=== PATIENT | female | born 1960 | race Caucasian/White ===

== ENCOUNTER 2020-01-25 04:36 | Emergency (ER) | payer MEDICAID, MEDICARE ==
[~2020-01-25] VITALS: Ht 154.9 cm; Wt 60.9 kg
--- NOTE | 2020-01-25 04:48 | NUR ---
pt up to rr with steady gait
--- NOTE | 2020-01-25 04:53 | NUR ---
urine sample taken to lab. pa at pt's bedside for eval
[2020-01-25] MEDS ORDERED: SODIUM CHLORIDE FLUSH 10ML SYR IVF ONE (05:00)
[2020-01-25] MEDS ORDERED: KETOROLAC 30 MG/1 ML ONE (05:00)
[2020-01-25] MEDS ORDERED: KETOROLAC 30 MG/1 ML IVPush ONE (05:00)
--- NOTE | 2020-01-25 05:12 | NUR ---
iv site started, labs drawn, pt medicated per mar
[2020-01-25 05:14] LABS: MICROSCOPIC INDICATED
[2020-01-25] MEDS ORDERED: BECL10.62 INH (05:14)
[2020-01-25 05:20] LABS: BASOPHILS # (AUTO) 0.06 x10^3/uL (0-0.1); BASOPHILS % (AUTO) 1 % (0-1); EOSINOPHILS # (AUTO) 0.45 x10^3/uL (0-0.4); EOSINOPHILS % (AUTO) 6 % (1-7); LYMPHOCYTES # (AUTO) 2.17 x10^3/uL (1-3.4); LYMPHOCYTES % (AUTO) 29 % (22-44); MD NO; MEAN CORPUSCULAR HEMOGLOBIN 27.1 pg (27.0-34.8); MEAN CORPUSCULAR HGB CONC 32.7 g/dL (32.4-35.8); MEAN CORPUSCULAR VOLUME 82.8 fL (80-100); MEAN PLATELET VOLUME 7.8 fL (7.4-10.4); MONOCYTES # (AUTO) 0.46 x10^3/uL (0.2-0.8); MONOCYTES % (AUTO) 6 % (2-9); NEUTROPHILS # (AUTO) 4.34 x10^3/uL (1.8-6.8); NEUTROPHILS % (AUTO) 58 % (42-75); PLATELET COUNT 277 x10^3/uL (130-400); RED BLOOD COUNT 4.92 x10^6/uL (3.82-5.3); RED CELL DISTRIBUTION WIDTH 14.8 % (9.6-15.2)
[2020-01-25 05:29] LABS: ANION GAP 5 mmol/L (5-15); CALCIUM 8.6 mg/dL (8.5-10.1); CHLORIDE 110 mmol/L (98-107)
[2020-01-25 05:32] LABS: ALANINE AMINOTRANSFERASE 27 U/L (12-78); ALKALINE PHOSPHATASE 64 U/L (45-117); BILIRUBIN,TOTAL 0.8 mg/dL (0.2-1.0); CREATININE 0.92 mg/dL (0.55-1.02); TOTAL PROTEIN 7.5 g/dL (6.4-8.2)
--- NOTE | 2020-01-25 05:51 | NUR ---
straight cath completed, urine sample taken to lab
[2020-01-25 06:14] VITALS: BP 139/78
[2020-01-25 06:17] LABS: MICROSCOPIC INDICATED
== END 2020-01-25 06:50 | disposition home or self-care (01) ==
LOC: ED 05:00
DX: N20.1 Calculus of ureter (principal); R31.9 Hematuria, unspecified
CPT/HCPCS: 36415; 76770; 80053; 81001; 85025; 87086; 96374; 99284; J1885

== ENCOUNTER 2021-01-11 09:10 | Emergency (ER) | payer BC, MEDICARE ==
[~2021-01-11] VITALS: Ht 154.9 cm; Wt 59.9 kg
[~2021-01-11 09:10] MED LIST: BECL10.62 INH
--- NOTE | 2021-01-11 09:38 | NUR ---
PT CAME IN CO RLQ ABD PAIN THAT RADIATES TO HER BACK. PT REPORTS HX OF KIDNEY STONES AND SAYS "THIS FEELS SIMILAR". PT PROVIDED UA - SENT TO LAB. RESTING IN [facility]. CONNECTED TO MONITORING EQUIPMENT. BLANKET PROVIDED
[2021-01-11] MEDS ORDERED: KETOROLAC 30 MG/1 ML ONE (09:53)
[2021-01-11] MEDS ORDERED: ONDANSETRON 2MG/ML, 2ML ONE (09:54)
[2021-01-11 09:55] LABS: BASOPHILS % (AUTO) 0 % (0-1); EOSINOPHILS % (AUTO) 1 % (1-7); LYMPHOCYTES % (AUTO) 11 % (22-44); MEAN CORPUSCULAR HEMOGLOBIN 27.2 pg (27.0-34.8); MEAN PLATELET VOLUME 7.4 fL (7.4-10.4); MONOCYTES % (AUTO) 4 % (2-9); NEUTROPHILS % (AUTO) 84 % (42-75); PLATELET COUNT 266 x10^3/uL (130-400); RED BLOOD COUNT 4.94 x10^6/uL (3.82-5.3); RED CELL DISTRIBUTION WIDTH 14.2 % (9.6-15.2)
[2021-01-11] MEDS ORDERED: KETOROLAC 30 MG/1 ML IVPush ONE (10:00)
[2021-01-11] MEDS ORDERED: ALBUTEROL/IPRATROPIUM 2.5MG/0.5MG, 3 ML NPPB SCH (10:00)
[2021-01-11] MEDS ORDERED: ONDANSETRON 2MG/ML, 2ML IVPush ONE (10:00)
[2021-01-11 10:03] LABS: MICROSCOPIC INDICATED
[2021-01-11 10:05] LABS: ALBUMIN 4.2 g/dL (3.4-5.0); ANION GAP 6 mmol/L (5-15); CALCIUM 9.1 mg/dL (8.5-10.1); CHLORIDE 104 mmol/L (98-107); MD NO
--- NOTE | 2021-01-11 10:07 | NUR ---
PIV PLACED, PT MEDICATED PER ORDER, TOLERATED WELL. VSS, NADN. CALL LIGHT IN REACH.
--- NOTE | 2021-01-11 10:19 | NUR ---
PT TO CT
--- NOTE | 2021-01-11 10:24 | NUR ---
PT BACK FROM CT
[2021-01-11 10:42] VITALS: BP 130/68
--- NOTE | 2021-01-11 10:43 | NUR ---
UPON PAIN REASSESSMENT, PT STATES PAIN HAS DECREASED. PT A&O, RESPS EVEN AND UNLABORED, NADN, VSS. CALL LIGHT IN REACH.
--- NOTE | 2021-01-11 10:59 | NUR ---
YSABEL RED AT BEDSIDE FOR EVAL
--- NOTE | 2021-01-11 11:36 | NUR ---
PT EDUCATED ON DISCHARGE INSTRUCTIONS, PRESCRIPTION, AND FOLLOW-UP, VERBALIZED UNDERSTANDING. AMBULATORY TO DISCHARGE WITH STEADY GAIT.
== END 2021-01-11 11:39 | disposition home or self-care (01) ==
LOC: ED 11:00
DX: J44.1 Chronic obstructive pulmonary disease with (acute) exacerbation (principal); N20.1 Calculus of ureter; R10.9 Unspecified abdominal pain
CPT/HCPCS: 36415; 74176; 80048; 81001; 82040; 85025; 87086; 96374; 96375; 99284; J1885; J2405; J7512

== ENCOUNTER 2021-03-30 07:23 | Inpatient (IN) | payer MEDICARE ==
[~2021-03-30] VITALS: Ht 154.9 cm; Wt 59.2 kg
--- NOTE | 2021-03-30 07:32 | NUR ---
cytogeneticist: EKG done in triage
[2021-03-30] MEDS ORDERED: ALBUTEROL/IPRATROPIUM 2.5MG/0.5MG, 3 ML NPPB PRN ×2 (08:00→09:30)
[2021-03-30] MEDS ORDERED: SODIUM CHLORIDE FLUSH 10ML SYR IVF ONE (08:00)
[2021-03-30] MEDS ORDERED: methylPREDNISolone SOD SUCC 125 MG/2 ML ONE (08:00)
[2021-03-30] MEDS ORDERED: methylPREDNISolone SOD SUCC 125 MG/2 ML IV ONE (08:00)
[2021-03-30] MEDS ORDERED: ALBUTEROL/IPRATROPIUM 2.5MG/0.5MG, 3 ML ONE ×3 (08:01→18:16)
--- NOTE | 2021-03-30 08:07 | NUR ---
LS diminished with decrease aeration and exp wheezes throughout, HHN started. PCXR done, labs drawn with PIV and x1 set bc. Steroids per emar, on monitor ST no ectopy, RR 30, o2 sats steady at 94% on 3L. Pt with difficulty speaking full sentences. Pt also reports body aches and loss taste/smell, is covid vaccinated pfeizer x2. Covid swab by ERP. AIDET provided, will continue to monitor.
--- NOTE | 2021-03-30 08:19 | NUR ---
Lab here drawing 2nd set bc and lactate. Pt reports feeling a little better post HHN, ls with slight increase aeration, sats now 99% on 3L.
[2021-03-30 08:35] LABS: BASOPHILS % (AUTO) 1 % (0-1); EOSINOPHILS % (AUTO) 0 % (1-7); LYMPHOCYTES % (AUTO) 8 % (22-44); MEAN CORPUSCULAR HEMOGLOBIN 26.6 pg (27.0-34.8); MEAN CORPUSCULAR HGB CONC 32.6 g/dL (32.4-35.8); MEAN PLATELET VOLUME 7.8 fL (7.4-10.4); MONOCYTES % (AUTO) 3 % (2-9); NEUTROPHILS % (AUTO) 88 % (42-75); PLATELET COUNT 525 x10^3/uL (130-400); RED BLOOD COUNT 6.01 x10^6/uL (3.82-5.3); RED CELL DISTRIBUTION WIDTH 13.6 % (9.6-15.2)
[2021-03-30 08:40] LABS: ALANINE AMINOTRANSFERASE 25 U/L (12-78); ALBUMIN 3.8 g/dL (3.4-5.0); ANION GAP 7 mmol/L (5-15); CALCIUM 9.9 mg/dL (8.5-10.1); CHLORIDE 107 mmol/L (98-107); CREATININE 0.82 mg/dL (0.55-1.02)
[2021-03-30 08:44] LABS: ALKALINE PHOSPHATASE 111 U/L (45-117); BILIRUBIN,TOTAL 0.6 mg/dL (0.2-1.0); TOTAL PROTEIN 8.7 g/dL (6.4-8.2)
[2021-03-30] MEDS ORDERED: ASPIRIN 81 MG TABLET CHEW ONE (08:47)
[2021-03-30] MEDS ORDERED: ASPIRIN 81 MG TABLET CHEW PO ONE (09:00)
--- NOTE | 2021-03-30 09:55 | NUR ---
#2 HHN started for increase in SOB, low sats. IV to Right arm no s/s infiltration. Will go to CTA after RT tx finished.
--- NOTE | 2021-03-30 10:03 | NUR ---
Post HHN #2, increase aeration sats up to 99%, says feels better. Call to CTA to take pt. Pt agrees with POC.
--- NOTE | 2021-03-30 10:06 | NUR ---
No IVF orders from [facility] at this time.
--- NOTE | 2021-03-30 10:15 | NUR ---
Pt to CTA in [facility] on o2 with tech.
--- NOTE | 2021-03-30 10:35 | NUR ---
Pt back from CTA unable to complete due to inadequate IV status, pt returned to ER.
--- NOTE | 2021-03-30 11:30 | NUR ---
IV to Left AC by ANAMIKA severino. IV patent, notified CT of status.
--- NOTE | 2021-03-30 12:42 | NUR ---
CT DELAY; ONE ROOM DOING BIOPSY-PT IS ISOLATION R/O COVID AND MUST WAIT UNTIL BX DONE
--- NOTE | 2021-03-30 13:05 | NUR ---
task RN: assumed care of pt on behalf of primary RN for lunch break only. Dr. Steele at bedside for eval
--- NOTE | 2021-03-30 13:15 | NUR ---
task RN: pt in RAD
[2021-03-30] MEDS ORDERED: ACETAMINOPHEN 325 MG TABLET PO PRN (13:30)
[2021-03-30] MEDS ORDERED: POLYETHYLENE GLYCOL 17 GM PACKET PO PRN (13:30)
[2021-03-30] MEDS ORDERED: GUAIFENESIN/COD200MG-20MG/10ML LIQUID PO PRN (13:30)
--- NOTE | 2021-03-30 14:09 | NUR ---
Pt covid test negative, removed from iso in ER. Pt up to bsc with o2 on. Waiting for tele bed.
[2021-03-30] MEDS ORDERED: METOPROLOL TARTRATE 25 MG TAB ONE (14:19)
[2021-03-30] MEDS ORDERED: DEXAMETHASONE 4 MG/ML, 1ML ONE (14:19)
[2021-03-30] MEDS ORDERED: ENOXAPARIN 40 MG/0.4 ML ONE (14:19)
[2021-03-30] MEDS ORDERED: OMNIPAQUE 350 MG/ML, 100ML BOTTLE ONE (14:21)
[2021-03-30] MEDS ORDERED: KETOROLAC 30 MG/1 ML IV PRN (14:30)
[2021-03-30] MEDS: DEXAMETHASONE 4 MG/ML, 1ML IVPush SCH ×2 (14:46→21:49)
[2021-03-30] MEDS: METOPROLOL TARTRATE 25 MG TAB PO SCH ×2 (14:47→18:00)
[2021-03-30] MEDS: ENOXAPARIN 40 MG/0.4 ML SQ SCH (14:47)
--- NOTE | 2021-03-30 14:51 | NUR ---
medicated per order. spoke with hospitalist; pt being tx for PNA.
[2021-03-30] MEDS ORDERED: LACTATED RINGERS 1,000 ML IVBOLUS ONE (15:00)
[2021-03-30 16:06] VITALS: BP 145/98
[2021-03-30] MEDS ORDERED: LACTATED RINGERS 1,000 ML IV SCH (16:30)
[2021-03-30] MEDS ORDERED: PROPOFOL 10 MG/ML, 100ML IV ONE (17:04)
[2021-03-30] MEDS ORDERED: ETOMIDATE 20 MG/10 ML ONE (17:04)
[2021-03-30 17:07] VITALS: BP 146/98
[2021-03-30 18:46] LABS: BASOPHILS % (AUTO) 0 % (0-1); EOSINOPHILS % (AUTO) 0 % (1-7); LYMPHOCYTES % (AUTO) 4 % (22-44); MEAN CORPUSCULAR HGB CONC 31.6 g/dL (32.4-35.8); MEAN PLATELET VOLUME 7.5 fL (7.4-10.4); MONOCYTES % (AUTO) 1 % (2-9); NEUTROPHILS % (AUTO) 95 % (42-75); PLATELET COUNT 493 x10^3/uL (130-400); RED BLOOD COUNT 4.83 x10^6/uL (3.82-5.3); RED CELL DISTRIBUTION WIDTH 13.3 % (9.6-15.2)
[2021-03-30 18:54] LABS: ALANINE AMINOTRANSFERASE 29 U/L (12-78); ALBUMIN 2.7 g/dL (3.4-5.0); ANION GAP 5 mmol/L (5-15); CALCIUM 8.8 mg/dL (8.5-10.1); CHLORIDE 112 mmol/L (98-107); CREATININE 0.99 mg/dL (0.55-1.02)
[2021-03-30 18:55] LABS: D-DIMER 1.65 ug/mlFEU (0.00-0.52); INTERNATIONAL NORMALIZED RATIO 1.38 (0.93-1.1); PROTHROMBIN TIME 14.5 Seconds (9.6-11.5)
[2021-03-30 18:59] LABS: ALKALINE PHOSPHATASE 82 U/L (45-117); BILIRUBIN,TOTAL 0.3 mg/dL (0.2-1.0); TOTAL PROTEIN 6.7 g/dL (6.4-8.2)
[2021-03-30] MEDS ORDERED: NOREPINEPHRINE 1 MG/ML, 4ML ONE (19:21)
[2021-03-30] MEDS ORDERED: LACTATED RINGERS 1,000 ML IVBOLUS PRN (19:30)
[2021-03-30] MEDS ORDERED: NOREPINEPHRINE 8 MG in SODIUM CHLORIDE 0.9% 242 ML IV SCH (19:31)
[2021-03-30] MEDS ORDERED: TRAZODONE 50MG TABLET PO PRN (21:00)
[2021-03-30] MEDS ORDERED: MELATONIN 5 MG TABLET PO PRN (21:00)
[2021-03-30] MEDS: GUAIFENESIN ER 600 MG TABLET PO SCH (21:36)
[2021-03-30] MEDS: DOXYCYCLINE 50 MG/5 ML ORAL SUSP PO SCH (21:49)
[2021-03-30] MEDS: CEFTRIAXONE 2 GM in DEXTROSE 5% 50 ML IVPB SCH (21:49)
[2021-03-30] MEDS ORDERED: PROPOFOL 100 ML IV ONE (23:21)
[2021-03-30] MEDS ORDERED: GLUCAGON 1 MG IM PRN (23:30)
[2021-03-30] MEDS ORDERED: LACTULOSE 20 GM/30 ML UDC NG PRN (23:30)
[2021-03-30] MEDS ORDERED: PHARMACY MAY ADJ FOR RENAL FX MC SCH (23:30)
[2021-03-30] MEDS ORDERED: LIDOCAINE-MPF 1%, 2ML ENDO PRN (23:30)
[2021-03-31] MEDS ORDERED: OMNIPAQUE 350 MG/ML, 75ML BOTTLE ONE (01:30)
[2021-03-31] MEDS: PROPOFOL 100 ML IV PRN ×2 (01:50→05:27)
[2021-03-31] MEDS: DEXAMETHASONE 4 MG/ML, 1ML IVPush SCH (03:36)
[2021-03-31 04:32] LABS: BASOPHILS % (AUTO) 0 % (0-1); EOSINOPHILS % (AUTO) 0 % (1-7); LYMPHOCYTES % (AUTO) 9 % (22-44); MEAN CORPUSCULAR HEMOGLOBIN 26.6 pg (27.0-34.8); MEAN CORPUSCULAR HGB CONC 32.9 g/dL (32.4-35.8); MEAN PLATELET VOLUME 7.7 fL (7.4-10.4); MONOCYTES % (AUTO) 5 % (2-9); NEUTROPHILS % (AUTO) 86 % (42-75); PLATELET COUNT 409 x10^3/uL (130-400); RED BLOOD COUNT 4.67 x10^6/uL (3.82-5.3); RED CELL DISTRIBUTION WIDTH 13.4 % (9.6-15.2)
[2021-03-31 04:43] LABS: ALANINE AMINOTRANSFERASE 36 U/L (12-78); ALBUMIN 2.8 g/dL (3.4-5.0); ANION GAP 11 mmol/L (5-15); CALCIUM 8.6 mg/dL (8.5-10.1); CHLORIDE 116 mmol/L (98-107); CREATININE 0.84 mg/dL (0.55-1.02)
[2021-03-31 04:46] LABS: ALKALINE PHOSPHATASE 76 U/L (45-117); BILIRUBIN,TOTAL 0.4 mg/dL (0.2-1.0); TOTAL PROTEIN 6.2 g/dL (6.4-8.2)
[2021-03-31] MEDS: METOPROLOL TARTRATE 25 MG TAB PO SCH (05:27)
[2021-03-31] MEDS: methylPREDNISolone SOD SUCC 125 MG/2 ML IVPush SCH ×3 (06:27→18:30)
[2021-03-31] MEDS ORDERED: ALBUTEROL/IPRATROPIUM 2.5MG/0.5MG, 3 ML ONE ×2 (07:33→14:42)
[2021-03-31] MEDS: SODIUM CHLORIDE FLUSH 10ML SYR IVF SCH ×2 (09:00→19:47)
[2021-03-31] MEDS: SENNA/DOCUSATE TABLET PO SCH (10:11)
[2021-03-31] MEDS: DOXYCYCLINE 50 MG/5 ML ORAL SUSP PO SCH ×2 (10:12→20:45)
[2021-03-31] MEDS: GUAIFENESIN ER 600 MG TABLET PO SCH ×2 (10:12→20:45)
[2021-03-31] MEDS: ENOXAPARIN 40 MG/0.4 ML SQ SCH (13:53)
[2021-03-31] MEDS ORDERED: LACTATED RINGERS 1,000 ML IV SCH (16:30)
[2021-03-31] MEDS: CEFTRIAXONE 2 GM in DEXTROSE 5% 50 ML IVPB SCH (19:46)
[2021-04-01] MEDS: methylPREDNISolone SOD SUCC 125 MG/2 ML IVPush SCH ×4 (00:31→17:37)
[2021-04-01 05:05] LABS: MEAN CORPUSCULAR HEMOGLOBIN 26.1 pg (27.0-34.8); MEAN CORPUSCULAR HGB CONC 32.5 g/dL (32.4-35.8); MEAN PLATELET VOLUME 7.7 fL (7.4-10.4); PLATELET COUNT 350 x10^3/uL (130-400); RED BLOOD COUNT 4.54 x10^6/uL (3.82-5.3); RED CELL DISTRIBUTION WIDTH 13.2 % (9.6-15.2)
[2021-04-01 05:18] LABS: CHLORIDE 111 mmol/L (98-107)
[2021-04-01 05:25] LABS: ANION GAP 6 mmol/L (5-15); CALCIUM 8.9 mg/dL (8.5-10.1); CREATININE 0.59 mg/dL (0.55-1.02)
[2021-04-01 05:33] LABS: CLOSTRIDIUM DIFFICILE ANTIGEN NEGATIVE; CLOSTRIDIUM DIFFICILE TOXIN NEGATIVE (Negative)
[2021-04-01 05:39] LABS: BAND#(MANUAL) 0.25 x10^3/uL; BANDS%(MANUAL) 1 % (0-7); LYMPH#(MANUAL) 0.49 x10^3/uL (1-3.4); LYMPHS% (MANUAL) 2 % (22-44); MONOS#(MANUAL) 0.25 x10^3/uL (0.3-2.7); MONOS% (MANUAL) 1 % (2-9); SEG#(MANUAL) 23.62 x10^3/uL (1.8-6.8); SEGS% (MANUAL) 96 % (42-75)
[2021-04-01 05:40] LABS: <PLATELET ESTIMATE> ADEQUATE; <PLT MORPHOLOGY> NORMAL PLT MORPH; <RBC MORPHOLOGY> NORMAL
[2021-04-01] MEDS: GUAIFENESIN ER 600 MG TABLET PO SCH ×2 (08:30→21:29)
[2021-04-01] MEDS: SENNA/DOCUSATE TABLET PO SCH (08:30)
[2021-04-01] MEDS: POTASSIUM CHLORIDE 20 MEQ TAB.ER.PRT PO SCH ×2 (08:30→17:37)
[2021-04-01] MEDS: SODIUM CHLORIDE FLUSH 10ML SYR IVF SCH ×2 (08:31→21:30)
[2021-04-01] MEDS: DOXYCYCLINE 100MG TABLET PO SCH ×2 (08:33→21:30)
[2021-04-01] MEDS ORDERED: ALBUTEROL/IPRATROPIUM 2.5MG/0.5MG, 3 ML ONE (09:16)
[2021-04-01] MEDS ORDERED: ALBUTEROL/IPRATROPIUM 2.5MG/0.5MG, 3 ML NPPB PRN (09:30)
[2021-04-01 11:41] VITALS: BP 100/68
[2021-04-01 12:00] VITALS: BP 100/68
[2021-04-01] MEDS: ENOXAPARIN 40 MG/0.4 ML SQ SCH (17:37)
[2021-04-01 21:04] VITALS: BP 127/89
[2021-04-01] MEDS: CEFTRIAXONE 2 GM in DEXTROSE 5% 50 ML IVPB SCH (21:29)
[2021-04-02] MEDS: methylPREDNISolone SOD SUCC 125 MG/2 ML IVPush SCH ×4 (00:37→18:28)
[2021-04-02 03:00] VITALS: BP 120/79
[2021-04-02 06:09] LABS: BASOPHILS % (AUTO) 0 % (0-1); EOSINOPHILS % (AUTO) 0 % (1-7); LYMPHOCYTES % (AUTO) 2 % (22-44); MEAN CORPUSCULAR HEMOGLOBIN 26.3 pg (27.0-34.8); MEAN CORPUSCULAR HGB CONC 32.6 g/dL (32.4-35.8); MEAN PLATELET VOLUME 7.4 fL (7.4-10.4); MONOCYTES % (AUTO) 2 % (2-9); NEUTROPHILS % (AUTO) 96 % (42-75); PLATELET COUNT 303 x10^3/uL (130-400); RED BLOOD COUNT 4.35 x10^6/uL (3.82-5.3); RED CELL DISTRIBUTION WIDTH 13.7 % (9.6-15.2)
[2021-04-02 06:19] LABS: INTERNATIONAL NORMALIZED RATIO 1.06 (0.93-1.1); PROTHROMBIN TIME 11.3 Seconds (9.6-11.5)
[2021-04-02 06:22] LABS: ALBUMIN 2.7 g/dL (3.4-5.0); ANION GAP 3 mmol/L (5-15); CALCIUM 8.5 mg/dL (8.5-10.1); CHLORIDE 112 mmol/L (98-107)
[2021-04-02 06:27] LABS: ALANINE AMINOTRANSFERASE 50 U/L (12-78); ALKALINE PHOSPHATASE 66 U/L (45-117); BILIRUBIN,TOTAL 0.3 mg/dL (0.2-1.0); CREATININE 0.67 mg/dL (0.55-1.02); TOTAL PROTEIN 6.3 g/dL (6.4-8.2); TRIGLYCERIDES 106 mg/dL (50-200)
[2021-04-02 07:56] VITALS: BP 128/87
[2021-04-02] MEDS: GUAIFENESIN ER 600 MG TABLET PO SCH ×2 (08:12→20:25)
[2021-04-02] MEDS: DOXYCYCLINE 100MG TABLET PO SCH ×2 (08:12→20:25)
[2021-04-02] MEDS: SODIUM CHLORIDE FLUSH 10ML SYR IVF SCH ×2 (08:14→20:25)
[2021-04-02] MEDS: ENOXAPARIN 40 MG/0.4 ML SQ SCH (13:23)
[2021-04-02] MEDS: ONDANSETRON 2MG/ML, 2ML IVPush PRN (13:29)
[2021-04-02 13:54] VITALS: BP 138/98
[2021-04-02 13:56] VITALS: BP 126/66
[2021-04-02 18:27] VITALS: BP 137/85
[2021-04-02] MEDS: CARVEDILOL 3.125 MG TABLET PO SCH (18:29)
[2021-04-02 19:04] VITALS: BP 119/81
[2021-04-02] MEDS: CEFTRIAXONE 2 GM in DEXTROSE 5% 50 ML IVPB SCH (20:25)
[2021-04-03] MEDS: methylPREDNISolone SOD SUCC 125 MG/2 ML IVPush SCH ×3 (00:50→13:24)
[2021-04-03 01:21] VITALS: BP 101/64
[2021-04-03 06:03] VITALS: BP 130/76
[2021-04-03] MEDS: CARVEDILOL 3.125 MG TABLET PO SCH (06:08)
[2021-04-03 06:30] LABS: BASOPHILS % (AUTO) 0 % (0-1); EOSINOPHILS % (AUTO) 0 % (1-7); LYMPHOCYTES % (AUTO) 3 % (22-44); MEAN CORPUSCULAR HEMOGLOBIN 26.3 pg (27.0-34.8); MEAN CORPUSCULAR HGB CONC 32.5 g/dL (32.4-35.8); MEAN PLATELET VOLUME 7.7 fL (7.4-10.4); MONOCYTES % (AUTO) 3 % (2-9); NEUTROPHILS % (AUTO) 94 % (42-75); PLATELET COUNT 304 x10^3/uL (130-400); RED BLOOD COUNT 4.09 x10^6/uL (3.82-5.3); RED CELL DISTRIBUTION WIDTH 13.3 % (9.6-15.2)
[2021-04-03 06:33] LABS: ALANINE AMINOTRANSFERASE 92 U/L (12-78); ALBUMIN 2.7 g/dL (3.4-5.0); ANION GAP 5 mmol/L (5-15); CALCIUM 8.5 mg/dL (8.5-10.1); CHLORIDE 109 mmol/L (98-107); CREATININE 0.56 mg/dL (0.55-1.02)
[2021-04-03 06:37] LABS: ALKALINE PHOSPHATASE 66 U/L (45-117); BILIRUBIN,TOTAL 0.4 mg/dL (0.2-1.0)
[2021-04-03] MEDS: DOXYCYCLINE 100MG TABLET PO SCH (07:59)
[2021-04-03] MEDS: GUAIFENESIN ER 600 MG TABLET PO SCH (07:59)
[2021-04-03 08:00] VITALS: BP 120/81
[2021-04-03] MEDS ORDERED: LISINOPRIL 5 MG TABLET PO SCH (09:00)
[2021-04-03] MEDS ORDERED: PRED20TA PO (10:40)
[2021-04-03] MEDS ORDERED: DOXY100T PO (10:40)
[2021-04-03] MEDS ORDERED: LISI5TAB7 PO (10:40)
[2021-04-03] MEDS ORDERED: AMOX1TAB61 PO (10:40)
[2021-04-03] MEDS ORDERED: CARV3.1212 PO (10:40)
[2021-04-03 12:21] VITALS: BP 116/77
[2021-04-03] MEDS: ENOXAPARIN 40 MG/0.4 ML SQ SCH (13:25)
[2021-04-03] MEDS: SODIUM CHLORIDE FLUSH 10ML SYR IVF SCH (13:25)
[2021-04-03] MEDS: ONDANSETRON 2MG/ML, 2ML IVPush PRN (13:41)
== END 2021-04-03 17:54 | disposition home health service (06) | DRG 871 ==
LOC: ED 07:40 → SUATTDRO 12:43 → EDIP 13:13 → 4EST 15:58 → CCU 17:50 → 4WST 04-01 10:59
PROVIDERS: ADMIT Internal Medicine; ATTEND Family Medicine
PROC: 5A1935Z Respiratory Ventilation, Less than 24 Consecutive Hours (ICD-10-PCS; principal; 2021-03-30)
PROC: 0BH17EZ Insertion of Endotracheal Airway into Trachea, Via Natural or Artificial Opening (ICD-10-PCS; 2021-03-30)
PROC: 02HV33Z Insertion of Infusion Device into Superior Vena Cava, Percutaneous Approach (ICD-10-PCS; 2021-03-30)
PROC: B548ZZA Ultrasonography of Superior Vena Cava, Guidance (ICD-10-PCS; 2021-03-30)
PROC: 04HY32Z Insertion of Monitoring Device into Lower Artery, Percutaneous Approach (ICD-10-PCS; 2021-03-30)
PROC: 4A133B1 Monitoring of Arterial Pressure, Peripheral, Percutaneous Approach (ICD-10-PCS; 2021-03-30)
PROC: 4A133J1 Monitoring of Arterial Pulse, Peripheral, Percutaneous Approach (ICD-10-PCS; 2021-03-30)
DX: A41.9 Sepsis, unspecified organism (principal); I21.4 Non-ST elevation (NSTEMI) myocardial infarction; G93.41 Metabolic encephalopathy; J18.9 Pneumonia, unspecified organism; J96.01 Acute respiratory failure with hypoxia; R65.21 Severe sepsis with septic shock; I50.23 Acute on chronic systolic (congestive) heart failure; J44.1 Chronic obstructive pulmonary disease with (acute) exacerbation; J98.11 Atelectasis; D68.9 Coagulation defect, unspecified; E87.2 Acidosis; J44.0 Chronic obstructive pulmonary disease with (acute) lower respiratory infection; Z99.11 Dependence on respirator [ventilator] status; Z66 Do not resuscitate; D86.0 Sarcoidosis of lung; Z20.822 Contact with and (suspected) exposure to COVID-19; E88.09 Other disorders of plasma-protein metabolism, not elsewhere classified; J84.10 Pulmonary fibrosis, unspecified; E87.6 Hypokalemia; K40.90 Unilateral inguinal hernia, without obstruction or gangrene, not specified as recurrent; T38.0X5A Adverse effect of glucocorticoids and synthetic analogues, initial encounter; I25.2 Old myocardial infarction; Y92.89 Other specified places as the place of occurrence of the external cause; I11.0 Hypertensive heart disease with heart failure
CPT/HCPCS: 36415; 36600; 70450; 71045; 71275; 80048; 80053; 82330; 82803; 82962; 83605; 83735; 83880; 84100; 84145; 84478; 84484; 85025; 85379; 85610; 85730; 87040; 87070; 87077; 87081; 87186; 87205; 87324; 93005; 93306; 93356; 94002; 94003; 94640; 96374; G0378; J0696; J1100; J1650; J2405; J2704; Q9967; U0005; J2930; J7050; J7120; U0003